=== PATIENT | female | born 2000 | race African-American/Black ===

== ENCOUNTER 2021-02-18 17:51 | Emergency (ER) | payer BC, MEDICAID ==
[~2021-02-18] VITALS: Ht 160 cm; Wt 77.0 kg
[2021-02-18 18:06] VITALS: BP 127/63
[2021-02-18] MEDS ORDERED: ONDA4TAB12 PO (18:43)
[2021-02-18] MEDS ORDERED: FAMO-63 PO (18:43)
--- NOTE | 2021-02-18 18:43 | PHYS DOC ---
Past Medical History Past Medical History: No Pertinent History, Hypertension Past Surgical History: No Surgical History, Other Additional Past Surgical Histo: Smoking Status: Never Smoker Alcohol Use: None Drug Use: Marijuana Social History Patient works at [employer] Adult EDM: Chief Complaint: OTHER COMPLAINTS HPI: HPI: Patient is a 20 year old female who was brought to the emergency department by boyfriend for nausea, vomiting, , copper taste in mouth and smell. Patient claims that the copper taste in mouth and smell developed 2 months ago and has gotten progressively worse and has caused her to vomit once daily for the past couple days after she eats. Patient denies fever, chills, hematemesis, abdominal pain. Patient claims she got her right nostril pierced 3 months ago and believes the timeline of her getting her nose appears and developing this copper taste in her mouth may line up. Patient claims to only be taking oral contraceptive medication and denies any change in diet. Patient's last menstrual period was yesterday. Patient also claims she had 1 month ago from oral medication, without any complications. Patient denies ever having this cough or taste in mouth before. Review of Systems: Review of Systems: Constitutional: Denies fever or chills Eyes: Denies redness or eye pain HENT: Complains of copper smell, denies nasal congestion or sore throat Respiratory: Denies cough or shortness of breath Cardiovascular: Denies chest pain or palpitations GI: Complains of copper taste in mouth, denies abdominal pain, nausea, or vomiting : Denies dysuria or hematuria Musculoskeletal: Denies back pain or joint pain Integument: Denies rash or skin lesions Neurologic: Denies headache, focal weakness or sensory changes Complete systems were reviewed and found to be within normal limits, except as documented in this note. Heart Score: C/O Chest Pain: N/A Family History: Family History: No relevant family history Current Medications: Oral contraceptive Physical Exam: PE: Constitutional: Well developed, well nourished, no acute distress, non-toxic appearance HENT: Normocephalic, atraumatic, normal-appearing oral mucosa, right nostril nose ring, normal-appearing nasal mucosa Eyes: PERRL, EOMI, conjunctiva normal, no discharge Neck: Normal range of motion, no tenderness, supple Lungs & Thorax: No respiratory distress, equal chest rise and fall Abdomen: Soft, no tenderness Skin: Warm, dry, no erythema, no rash Back: No tenderness, no CVA tenderness Extremities: No tenderness, ROM intact, no edema Neurologic: Alert and oriented X 3, normal motor function, normal sensory function, no focal deficits noted Psychologic: Affect normal, judgment normal Current Patient Data: Vital Signs: Vital Signs Date Time Temp Pulse Resp B/P (MAP) Pulse Ox O2 Delivery O2 Flow Rate FiO2 02/18/21 18:06 98.9 82 12 127/63 (84) 99 Room Air 98.9 EKG: EKG: [] Radiology/Procedures: Radiology/Procedures: [] Course & Med Decision Making: Course & Med Decision Making 20-year-old female presents emergency department with copper taste in mouth and smelling copper causing patient to be nauseous and vomit. This has occurred for the past 2 months. Patient also feels that she may have GERD. Patient also believes nose ring may be because of smell and taste. Medication given for GERD. Patient recommended to take nose ring out or change material. Zofran prescribed for nausea. Patient stable for discharge with outpatient follow-up with PCP. Discussed findings and plan with patient, who acknowledges understanding and agreement. Neli Disclaimer: Neli Disclaimer: This electronic medical record was generated, in whole or in part, using a voice recognition dictation system. Departure Departure Impression: Primary Impression: Nausea & vomiting Qualified Codes: R11.2 - Nausea with vomiting, unspecified Additional Impression: Abnormal taste in mouth Disposition: HOME / SELF CARE / HOMELESS Condition: STABLE Patient Instructions: Gastritis, Adult, [id number], Nausea and Vomiting, [id number] Additional Instructions: Your abnormal taste in your mouth could be secondary to your nose ring. Trial leaving it out for a period of time to see if any improvement occurs. 'This may also be secondary to gastritis. Take prescribed medications as directed. Scripts Ondansetron (ONDANSETRON ODT) 4 Mg Tab.rapdis 1 TAB PO PRN Q6-8HRS PRN for NAUSEA, #16 TAB Prov: WESLEY CRAMER DO 02/18/21 Famotidine (PEPCID) 20 Mg Tablet 20 MG PO BID, #14 TAB Prov: WESLEY CRAMER DO 02/18/21 WESLEY CRAMER DO Feb 18, 2021 18:43
== END 2021-02-18 19:07 | disposition home or self-care (01) ==
LOC: ER 17:51
DX: R11.2 Nausea with vomiting, unspecified (principal); Q89.9 Congenital malformation, unspecified; I10 Essential (primary) hypertension; F12.90 Cannabis use, unspecified, uncomplicated; Z98.890 Other specified postprocedural states
CPT/HCPCS: 99283